=== PATIENT | female | born 1990 | race Caucasian/White ===

== ENCOUNTER → 2018-03-29 13:33 | Outpatient (CLI) | payer OTHER, SELFPAY | PROVIDERS: PCP Family Medicine | DX: Z23 Encounter for immunization (principal) | CPT/HCPCS: 90471; 90686 ==

== ENCOUNTER → 2019-03-01 15:28 | Outpatient (CLI) | payer OTHER, SELFPAY | PROVIDERS: PCP Family Medicine | DX: Z23 Encounter for immunization (principal) | CPT/HCPCS: 90471; 90686 ==

== ENCOUNTER → 2019-05-13 07:43 | Outpatient (CLI) | payer OTHER, SELFPAY ==
--- NOTE | 2019-05-13 07:44 | DI.US.S_ITS ---
PROCEDURE: US PELVIC COMPLETE INDICATIONS: ENLARGED UTERUS, HISTORY OF FIBROIDS TECHNIQUE: Real-time scanning was performed of the pelvic organs, with image documentation. Additional endovaginal scanning was necessary due to incomplete visualization of the adnexal and endometrial structures by transabdominal scanning. COMPARISON: None. FINDINGS: Transabdominal scanning: Limited scanning through the kidneys shows no hydronephrosis. No pathologic free abdominal or pelvic fluid. Endovaginal scanning: Uterus: Uterus is normal in size at 4.5 x 5.4 x 8.1 cm. The endometrium measures 8.0 mm in combined thickness. Morphology of the fundal portion of the endometrial lining is bicornuate or arcuate. Ovaries: The right ovary measures 3.5 x 2.2 x 1.7 cm and the left measures 3.6 x 2.3 x 2.2 cm. IMPRESSION: No uterine mass. 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 This would be of potential significant importance in the setting of . Normal appearing ovaries by thighs bilaterally, note is made of a right ovarian cyst measuring up to 2.8 cm with internal mild degree. This likely reflects sequela of a hemorrhagic ovarian cyst. Dictated by: Ganag Younger M.D. on 05/13/2019 at 14:58 Approved by: Ganga Younger M.D. on 05/13/2019 at 15:06
== END ==
PROVIDERS: PCP Family Medicine; Visit Provider Family Medicine
DX: N85.2 Hypertrophy of uterus (principal); N83.201 Unspecified ovarian cyst, right side
CPT/HCPCS: 76856

== ENCOUNTER → 2020-02-23 | Outpatient (CLI) | payer OTHER, SELFPAY | PROVIDERS: PCP Family Medicine; Referring Provider Internal Medicine; Visit Provider Internal Medicine | DX: Z23 Encounter for immunization (principal) | CPT/HCPCS: 90471; 90686 ==

== ENCOUNTER → 2021-03-08 12:03 | Outpatient (CLI) | payer OTHER, SELFPAY ==
[2021-03-08 13:35] LABS: COVID19 -Nasal RAPID Negative (Negative)
== END ==
PROVIDERS: PCP Family Medicine; Referring Provider Nurse Practitioner; Visit Provider Nurse Practitioner
DX: Z20.822 Contact with and (suspected) exposure to COVID-19 (principal); J02.9 Acute pharyngitis, unspecified; R09.81 Nasal congestion
CPT/HCPCS: 87635

== ENCOUNTER → 2021-03-21 12:04 | Outpatient (CLI) | payer OTHER, SELFPAY | PROVIDERS: PCP Family Medicine; Referring Provider Internal Medicine; Visit Provider Internal Medicine | DX: Z23 Encounter for immunization (principal) | CPT/HCPCS: 90471; 90686 ==

== ENCOUNTER → 2021-04-26 09:14 | Outpatient (CLI) | payer OTHER, SELFPAY ==
--- NOTE | 2021-04-26 09:15 | DI.US.S_ITS ---
PROCEDURE: US PERIPH VENOUS LOW EXTREM LT INDICATIONS: EDEMA TECHNIQUE: Real-time imaging, as well as color and pulse Doppler interrogation, were performed of the lower extremity deep veins from the inguinal ligament to the popliteal fossa. COMPARISON: None. FINDINGS: The common femoral, femoral and popliteal veins are normally compressible, and free of intraluminal thrombus. Color and pulse Doppler demonstrate normal phasic intraluminal flow. There is normal augmentation response to distal compression maneuver. IMPRESSION: Negative for deep venous thrombosis. Dictated by: Michael Medina M.D. on 04/26/2021 at 8:59 Approved by: Michael Medina M.D. on 04/26/2021 at 9:00
== END ==
PROVIDERS: PCP Family Medicine; Referring Provider Family Medicine; Visit Provider Family Medicine
DX: R60.0 Localized edema (principal)
CPT/HCPCS: 93971

== ENCOUNTER → 2022-03-17 17:20 | Outpatient (CLI) | payer OTHER, SELFPAY | PROVIDERS: PCP Family Medicine; Referring Provider Internal Medicine; Visit Provider Internal Medicine | DX: Z23 Encounter for immunization (principal) | CPT/HCPCS: 90471; 90686 ==

== ENCOUNTER → 2022-06-17 14:47 | Outpatient (ROUT) | payer OTHER, SELFPAY ==
[2022-06-17 15:13] LABS: COVID19 -Nasal RAPID Negative (Negative)
== END ==
PROVIDERS: PCP Family Medicine; Visit Provider Family Medicine
DX: Z20.822 Contact with and (suspected) exposure to COVID-19 (principal)
CPT/HCPCS: 87635

== ENCOUNTER → 2024-03-29 12:29 | Outpatient (CLI) | payer OTHER, SELFPAY ==
[2024-03-29 13:41] LABS: Influenza A - CEPHEID Flu A NEGATIVE (NEGATIVE); Influenza B - CEPHEID Flu B NEGATIVE (NEGATIVE); Respiratory Syncytial Virus Negative (Negative)
[2024-03-29 13:42] LABS: COVID-19 CEPHEID 4-PLEX PCR Negative (Negative)
== END ==
PROVIDERS: PCP Family Medicine; Visit Provider Physician Assistant Medical
DX: R05.1 Acute cough (principal)
CPT/HCPCS: 0241U

== ENCOUNTER 2024-06-09 21:12 | Emergency (ER) | payer OTHER, SELFPAY ==
[2024-06-09 21:22] VITALS: BP 132/75; PULSE 94; RESP 16; TEMP 37.2; O2SAT 98; BMI 24.2
[2024-06-10] VITALS (8 sets, daily range): BP systolic 124–147; BP diastolic 78–94; PULSE 73–83; O2SAT 97–100
--- NOTE | 2024-06-10 01:38 | ED_ITS ---
HPI - Extremity Problem General Chief complaint: Extremity Problem,Nontraumatic Stated complaint: lt 4th finger infection Time Seen by Provider: 06/10/24 01:38 Source: patient, RN notes reviewed and old records reviewed Mode of arrival: Ambulatory Limitations: no limitations History of Present Illness HPI Narrative: 34-year-old female reported medical issues presents with complaint of increasing swelling and pain of her finger this Thursday on the patient was started on cephalexin has not had any improvement noticed increasing swelling and discomfort and now has redness tracking up her arm towards her armpit and some discomfort in of the lymph in her arm pit. No fevers no chills no chest pain or shortness of breath. No nausea or vomiting no other GI or urinary symptoms. Patient states she did not have any obvious cuts or lacerations or bites started this. Has not had issues in the past. States no daily medications. Denies any drug allergies. No tobacco, no regular alcohol, no IV drugs. Related Data Previous Rx's Medication Instructions Recorded azithromycin 250 mg tablet See Rx Instructions PO .COMPLEX #6 03/29/24 tabs codeine 10 mg-guaifenesin 100 mg/5 5 ml PO Q4-6H PRN cough #118 mL 03/29/24 mL oral liquid fluticasone 100 mcg-salmeterol 50 1 inh inhalation Q12H #60 ea 03/29/24 mcg/dose blistr powdr for inhalation (Advair Diskus) clindamycin HCl 300 mg capsule 300 mg PO Q6H 10 days #40 caps 06/10/24 Allergies Allergy/AdvReac Type Severity Reaction Status Date / Time No Known Allergies Allergy Uncoded 03/29/24 12:23 Review of Systems Review of Systems ROS Unobtainable: All systems reviewed & are unremarkable except as noted in HPI and below Patient History Medical History Chronic pain of right knee Somatic dysfunction of lower extremity Segmental and somatic dysfunction of abdomen and other regions Sacral region somatic dysfunction Pelvic somatic dysfunction Lumbar region somatic dysfunction Thoracic region somatic dysfunction Cervical somatic dysfunction Stiff neck Chronic right-sided low back pain without sciatica Painful menstrual periods Abnormal Pap smear of cervix (~2010) Surgical History Anesthesia History of shoulder surgery (~09/2007) History of repair of ACL (~06/2006) Fibroids (~2005) Status post hernia repair (~1991) Family History Father Age: 65 Hypertension High cholesterol Grandfather Rheumatic fever Heart disease Grandmother Age: 86 Hypertension Stroke Dementia Diabetes mellitus Mother Age: 65 Hypertension Grandfather Age: 68 Malignant neoplasm of lung, unspecified laterality, unspecified part of lung Grandmother Age: 68 ST elevation myocardial infarction (STEMI), unspecified artery Diabetes mellitus Social History marital status: number of children: 0 household members: spouse education level: college occupational status: employed Smoking Status: Never smoker alcohol intake: current substance use type: does not use Smoking Status: Never smoker Exam Narrative Exam Narrative: GENERAL: Alert and oriented x three, female in no acute distress HEENT: Head normocephalic, atraumatic, EOMI, pupils reactive, face symmetric, moist mucous membranes NECK: Supple, full range of motion CARDIOVASCULAR: Regular rate and rhythm without murmurs, rubs or gallops. RESPIRATORY: Breath sounds equal bilaterally, no wheezes rales or rhonchi. ABDOMEN: Soft, nontender. Normoactive bowel sounds all 4 quadrants. No guarding or rebound, rigidity, no mass : No CVA tenderness EXTREMITIES: Normal range of motion, no clubbing. Patient has swelling erythema and fluctuance particularly on the radial side of the distal fingertip adjacent to the nail on the 4th finger on her left hand, areas tender and warm to touch. Patient has some erythema tracking up her arm very scantly but towards the axilla. No palpable lymphadenopathy in the left axilla. 2+ radial pulse normal sensation full range of motion. No difficulty with flexion-extension. NEUROLOGICAL: Cranial nerves II through XII grossly intact. Moving all extremities SKIN: Warm, dry, no petechiae, no rashes or lesions. Initial Vital Signs Initial Vital Signs: Vital Signs Temperature 99.0 F 06/09/24 21:22 Pulse Rate 94 H 06/09/24 21:22 Respiratory Rate 16 06/09/24 21:22 Blood Pressure 132/75 06/09/24 21:22 Pulse Oximetry 98 06/09/24 21:22 Oxygen Delivery Method Room Air 06/09/24 21:22 Procedures Abscess I/D I&D #1: Site: other (Fourth finger left hand) Sedation/analgesia: none Local Anesthetic: other anesthetic (Topical prilocaine) Technique: incised with #11 blade Amount of fluid expressed (mL): 2 Irrigation: Yes Packing used?: none Course Orders Ordered: ED Orders 06/10/24 02:30 CBC Auto Diff [Complete Blood Count AUTO DIFF] Stat CMP [Comprehensive Metabolic Panel] Stat Lactate (Lactic Acid) Stat Procalcitonin Stat 06/10/24 02:43 Blood Culture Stat 06/10/24 03:35 Wound Culture and Gram Stain Stat Discontinued Medications Clindamycin Phosphate (Cleocin) 900 mg in 50 mls @ 50 mls/hr IV NOW ONE Stop: 06/10/24 03:17 Last Infusion: 06/10/24 03:42 Dose: Infused Documented By: Admin: 06/10/24 02:48 Dose: 50 mls/hr Documented By: Lidocaine/Prilocaine (Lidocaine/Prilocaine 5 Gm) 5 gm TOP NOW ONE Stop: 06/10/24 02:18 Last Admin: 06/10/24 02:53 Dose: 5 gm Documented By: Vital Signs Vital signs: Vital Signs - 8 hr 06/09/24 21:22 06/10/24 00:55 06/10/24 00:55 Temperature 99.0 F Pulse Rate 94 H 75 Respiratory Rate 16 Blood Pressure 132/75 135/86 Pulse Oximetry 98 100 Oxygen Delivery Method Room Air 06/10/24 01:02 06/10/24 01:30 06/10/24 02:00 Temperature Pulse Rate 83 76 78 Respiratory Rate Blood Pressure Pulse Oximetry 99 98 97 Oxygen Delivery Method Room Air Room Air Room Air 06/10/24 02:31 06/10/24 02:33 06/10/24 02:33 Temperature Pulse Rate 77 77 Respiratory Rate Blood Pressure 129/81 Pulse Oximetry 97 100 Oxygen Delivery Method Room Air 06/10/24 03:00 06/10/24 03:00 06/10/24 03:30 Temperature Pulse Rate 73 Respiratory Rate Blood Pressure 124/78 147/94 H Pulse Oximetry 98 Oxygen Delivery Method 06/10/24 03:30 Temperature Pulse Rate 73 Respiratory Rate Blood Pressure Pulse Oximetry 100 Oxygen Delivery Method MDM - Extremity (Nontraumatic) Lab Data 06/10/24 02:30 06/10/24 02:30 Labs: Lab Results 06/10/24 Range/Units 02:30 WBC 6.8 (4.5-11.0) X10^3/uL RBC 4.14 (4.0-5.2) X10^6/uL Hgb 13.3 (12.0-16.0) g/dL Hct 38.8 (36-46) % MCV 93.8 (80-100) fL MCH 32.2 (26-34) PG MCHC 34.3 (30-36) % RDW 13.5 (11.6-14.8) % Plt Count 331 (150-400) X10^3/uL Neut % (Auto) 62.5 (50-75) % Lymph % (Auto) 23.9 L (25-40) % [place] % (Auto) 10.8 (3-14) % Eos % (Auto) 2.3 (2-4) % Baso % (Auto) 0.5 (0-2) % Neut # (Auto) 4300 (5239-7233) /uL Lymph # (Auto) 1600 (9597-3075) /uL [place] # (Auto) 700 (0-900) /uL Eos # (Auto) 200 (0-450) /uL Baso # (Auto) 0 (0-100) /uL Sodium 137 (137-145) mmol/L Potassium 3.7 (3.4-5.1) mmol/L Chloride 104 (98-107) mmol/L Carbon Dioxide 27 (22-32) mmol/L BUN 15 (7-17) mg/dL Creatinine 0.80 (0.52-1.04) mg/dL Estimated GFR > 60 (>60) mL/min BUN/Creatinine Ratio 18.8 (6-22) Glucose 113 H (70-100) mg/dL Lactate < 0.5 L (0.7-2.1) mmol/L Calcium 9.2 (8.4-10.2) mg/dL Total Bilirubin 0.3 (0.2-1.3) mg/dL AST 23 (14-36) IU/L ALT 17 (<35) IU/L Alkaline Phosphatase 79 (38-126) U/L Total Protein 7.4 (6.3-8.2) g/dL Albumin 4.5 (3.5-5.0) g/dL Globulin 2.9 (1.7-4.1) g/dL Albumin/Globulin Ratio 1.6 (1.0-2.8) Procalcitonin 0.035 (<0.5) ng/mL MDM Narrative Medical decision making narrative: Patient appears to have a paronychia of her digit that has been on cephalexin for approximately 2 days has been worsening and has a line of redness tracking up her arm. Discussed with patient she was nontoxic does not appear septic we will obtain labs including blood culture we will I and D the site and given a dose of Clindamycin. Labs show normal hemoglobin white count and platelets. Show normal electrolytes, BUN creatinine, glucose of 113 lactate 0.5 normal LFTs procalcitonin is 0.035. Patient received clindamycin, topical lidocaine for I and D. patient tolerated well did have a small amount of purulent fluid and culture was obtained and sent. Discussed observation patient politely defers. She is nontoxic does have some lymphadenitis but we will change antibiotics with strict return precautions. Discharge Plan Departure Patient Disposition: Home Clinical Impression: Paronychia of finger, Acute lymphangitis of upper extremity Activity Restrictions/Additional Instructions: Follow up for recheck in the next 48 hours if you are not having any improvement. You do have blood cultures pending they take 48-72 hours to result but if positive you would be contacted. There is also wound culture pending these takes 48-72 hours to result as well if it shows resistance to the antibiotics you have been prescribed he would be contacted to change them. Take oral antibiotics until completed prescription was sent to [facility] in [place]. Please return for any fevers, increasing redness or swelling, worsening redness streaking up your arm, increasing drainage, any chest pain, shortness of breath, nausea or vomiting or other new or concerning changes. Prescriptions: New clindamycin HCl 300 mg capsule 300 mg PO Q6H 10 Days Qty: 40 0RF No Action azithromycin 250 mg tablet See Rx Instructions PO .COMPLEX Qty: 6 0RF Rx Instructions: For 250 mg dose pack: take 500 mg today (day 1), then 250 mg for 4 days (days 2-5) PO codeine-guaifenesin 10-100 mg/5 mL liquid 5 ml PO Q4-6H PRN (Reason: cough) Qty: 118 0RF fluticasone propion-salmeterol [Advair Diskus] 100-50 mcg/dose blister with device 1 inh inhalation Q12H Qty: 60 0RF Referrals: Dinorah Keith DO [Primary Care Provider] - Stand Alone Forms: Patient Portal/API/Survey
[2024-06-10 02:39] LABS: Add Manual Diff / Slide Review NO; Basophils Absolute Auto 0 /uL (0-100); Basophils Percent Auto 0.5 % (0-2); Eosinophils Absolute Auto 200 /uL (0-450); Eosinophils Percent Auto 2.3 % (2-4); Hematocrit 38.8 % (36-46); Hemoglobin 13.3 g/dL (12.0-16.0); Lymphocytes Absolute Auto 1600 /uL (1100-4500); Lymphocytes Percent Auto 23.9 % (25-40); Mean Corpuscular HGB Conc 34.3 % (30-36); Mean Corpuscular Hemoglobin 32.2 PG (26-34); Mean Corpuscular Volume 93.8 fL (80-100); Monocytes Absolute Auto 700 /uL (0-900); Monocytes Percent Auto 10.8 % (3-14); Neutrophils Absolute Auto 4300 /uL (1500-7000); Neutrophils Percent Auto 62.5 % (50-75); Platelet Count 331 X10^3/uL (150-400); Red Blood Cell Count 4.14 X10^6/uL (4.0-5.2); Red Cell Distribution Width 13.5 % (11.6-14.8); White Blood Cell Count 6.8 X10^3/uL (4.5-11.0)
[2024-06-10] MEDS: CLINDAMYCIN 900 MG/50 ML PIGGYBACK 50 MG IV (02:48)
[2024-06-10 02:51] LABS: Alanine Aminotransferase 17 IU/L (<35); Albumin 4.5 g/dL (3.5-5.0); Albumin Globulin Ratio 1.6 (1.0-2.8); Alkaline Phosphatase 79 U/L (38-126); Aspartate Aminotransferase 23 IU/L (14-36); BUN Creatinine Ratio 18.8 (6-22); Bilirubin Total 0.3 mg/dL (0.2-1.3); Blood Urea Nitrogen 15 mg/dL (7-17); Calcium 9.2 mg/dL (8.4-10.2); Carbon Dioxide 27 mmol/L (22-32); Chloride 104 mmol/L (98-107); Estimated Glomerular Filt Rate > 60 mL/min (>60); Globulin 2.9 g/dL (1.7-4.1); Glucose 113 mg/dL (70-100); HEMOLYSIS 15 (0-50); Potassium 3.7 mmol/L (3.4-5.1); Sodium 137 mmol/L (137-145); Total Protein 7.4 g/dL (6.3-8.2)
[2024-06-10] MEDS: LIDOCAINE/PRILOCAINE 5 GM TOP (02:53)
[2024-06-10 02:56] LABS: Lactate (Lactic Acid) < 0.5 mmol/L (0.7-2.1)
[2024-06-10 03:08] LABS: Procalcitonin 0.035 ng/mL (<0.5)
== END 2024-06-10 03:51 | disposition home or self-care (01) ==
PROVIDERS: Emergency Provider Emergency Medicine; PCP Family Medicine
DX: L03.012 Cellulitis of left finger (principal); L03.122 Acute lymphangitis of left axilla
CPT/HCPCS: 10060; 36415; 80053; 83605; 84145; 85025; 87040; 87070; 87077; 87147; 87186; 87205; 96365; 99284

== ENCOUNTER → 2024-10-24 07:02 | Outpatient (CLI) | payer OTHER, SELFPAY ==
[2024-10-24 07:35] LABS: Add Manual Diff / Slide Review NO; Basophils Absolute Auto 0 /uL (0-100); Basophils Percent Auto 0.9 % (0-2); Eosinophils Absolute Auto 200 /uL (0-450); Hematocrit 37.8 % (36-46); Hemoglobin 13.1 g/dL (12.0-16.0); Lymphocytes Absolute Auto 1300 /uL (1100-4500); Lymphocytes Percent Auto 27.2 % (25-40); Mean Corpuscular HGB Conc 34.6 % (30-36); Mean Corpuscular Hemoglobin 32.3 PG (26-34); Mean Corpuscular Volume 93.3 fL (80-100); Monocytes Absolute Auto 400 /uL (0-900); Monocytes Percent Auto 9.5 % (3-14); Neutrophils Absolute Auto 2700 /uL (1500-7000); Neutrophils Percent Auto 58.4 % (50-75); Platelet Count 328 X10^3/uL (150-400); Red Blood Cell Count 4.05 X10^6/uL (4.0-5.2); Red Cell Distribution Width 13.1 % (11.6-14.8); White Blood Cell Count 4.6 X10^3/uL (4.5-11.0)
[2024-10-24 07:53] LABS: HEMOLYSIS < 15 (0-50); Iron 89 ug/dL (37-170)
[2024-10-24 07:57] LABS: Alanine Aminotransferase 19 IU/L (<35); Albumin Globulin Ratio 1.7 (1.0-2.8); Alkaline Phosphatase 64 U/L (38-126); Aspartate Aminotransferase 22 IU/L (14-36); BUN Creatinine Ratio 24.3 (6-22); Bilirubin Total 0.5 mg/dL (0.2-1.3); Blood Urea Nitrogen 17 mg/dL (7-17); Calcium 9.1 mg/dL (8.4-10.2); Carbon Dioxide 24 mmol/L (22-32); Chloride 104 mmol/L (98-107); Cholesterol 178 mg/dL (140-199); Estimated Glomerular Filt Rate > 60 mL/min (>60); Globulin 2.3 g/dL (1.7-4.1); Glucose 103 mg/dL (70-99); HDL Cholesterol 64 mg/dL (40-60); HEMOLYSIS < 15 (0-50); LDL Cholesterol Calculated 101 mg/dL (<100); Potassium 4.1 mmol/L (3.4-5.1); Sodium 137 mmol/L (137-145); Total Protein 6.3 g/dL (6.3-8.2); Triglycerides 64 mg/dL (35-150)
[2024-10-24 08:05] LABS: Percent Iron Saturation 32 % (15-50); Total Iron Binding Capacity 277 ug/dL (265-497); Transferrin 224 mg/dL (206-381)
[2024-10-24 08:12] LABS: Prolactin 23.9 ng/mL (3.0-18.6)
[2024-10-24 08:13] LABS: Follicle Stimulating Hormone 6.16 mIU/mL; Free T3, Triiodothyronine Free 4.44 pg/mL (2.77-5.27); Free T4, Direct Thyroxine 1.09 ng/dL (0.78-2.19); Luteinizing Hormone 4.22 mIU/mL; Progesterone, Total 2.49 ng/mL
[2024-10-24 08:27] LABS: Thyroid Stimulating Hormone 2.33 uIU/mL (0.47-4.68)
[2024-10-24 08:28] LABS: Estradiol, Total 57.2 pg/mL
[2024-10-24 08:29] LABS: Ferritin 27 ng/mL (6-137); Testosterone 39.6 ng/dL (5.71-77.0)
[2024-10-24 09:03] LABS: Vitamin B12 598 pg/mL (239-931)
[2024-10-25 06:37] LABS: Apolipoprotein B 68 mg/dL (<90)
[2024-10-25 07:09] LABS: C Peptide 2.4 ng/mL (1.1-4.4); Insulin Level Total 8.8 uIU/mL (2.6-24.9)
== END ==
LOC: LAB 07:03
PROVIDERS: PCP Registered Nurse; Referring Provider Family Medicine; Visit Provider Family Medicine
DX: N92.6 Irregular menstruation, unspecified (principal); K59.00 Constipation, unspecified; R11.0 Nausea; R53.83 Other fatigue; R41.89 Other symptoms and signs involving cognitive functions and awareness; Z71.89 Other specified counseling; Z87.09 Personal history of other diseases of the respiratory system
CPT/HCPCS: 36415; 80053; 80061; 82172; 82607; 82670; 82728; 82746; 83001; 83002; 83036; 83525; 83540; 83550; 84144; 84146; 84403; 84439; 84443; 84481; 84681; 85025